=== PATIENT | female | born 1990 | race Caucasian/White ===

== ENCOUNTER 2018-04-27 09:47 | Emergency (ER) | payer OTHER ==
[~2018-04-27] VITALS: Ht 165.1 cm; Wt 99.3 kg
[2018-04-27 09:53] VITALS: Ht 165.1 cm; Wt 99.3 kg
[2018-04-27 10:57] VITALS: BP 116/71
== END 2018-04-27 10:57 | disposition home or self-care (01) ==
LOC: ED 09:47
DX: S93.402A Sprain of unspecified ligament of left ankle, initial encounter (principal); W01.0XXA Fall on same level from slipping, tripping and stumbling without subsequent striking against object, initial encounter; Y93.89 Activity, other specified; Y92.89 Other specified places as the place of occurrence of the external cause; Y99.8 Other external cause status